=== PATIENT | female | born 1950 | race American Indian/Alaskan Native ===

== ENCOUNTER 2017-03-14 14:50 | Emergency (ER) | payer MEDICARE ==
--- NOTE | 2017-03-14 17:07 | Emergency Department Report ---
ED General Adult HPI - General Chief complaint: Hypoglycemia Stated complaint: TOOK WRONG MEDS Time Seen by Provider: 03/14/17 16:12 Source: patient, EMS Mode of arrival: Ambulatory Limitations: No Limitations - History of Present Illness Initial comments: Patient is 67 years old female history of diabetes and hypertension. Patient brought here for evaluation of hypoglycemia secondary to taking the wrong medication. Patient stated that around 1:00 this afternoon instead of taking her 30 units of Levemir she took 30 units of NovoLog. Patient blood sugar dropped, but she was conscious, patient was given a meal. Her blood sugar now is 224. - Related Data Allergies Allergy/AdvReac Type Severity Reaction Status Date / Time lisinopril Allergy Angioedema Verified 03/14/17 16:02 ED Review of Systems ROS: Stated complaint: TOOK WRONG MEDS Other details as noted in HPI Comment: All other systems reviewed and negative Constitutional: denies: chills, fever Respiratory: denies: cough, shortness of breath, SOB with exertion Cardiovascular: denies: chest pain, palpitations, edema Gastrointestinal: denies: abdominal pain, nausea, vomiting, diarrhea, constipation ED Past Medical Hx - Past Medical History Previous Medical History?: Yes Hx Hypertension: Yes Hx Diabetes: Yes Additional medical history: High Cholestrol - Social History Smoking Status: Never Smoker Substance Use Type: None ED Physical Exam - General Limitations: No Limitations General appearance: alert, in no apparent distress - Head Head exam: Present: atraumatic, normocephalic, normal inspection - Eye Eye exam: Present: normal appearance, PERRL - ENT ENT exam: Present: normal exam, normal orophraynx, mucous membranes moist - Neck Neck exam: Present: normal inspection, full ROM. Absent: tenderness, meningismus - Respiratory Respiratory exam: Present: normal lung sounds bilaterally. Absent: respiratory distress, wheezes, rales, rhonchi, chest wall tenderness, accessory muscle use, decreased breath sounds, prolonged expiratory - Cardiovascular Cardiovascular Exam: Present: regular rate, normal rhythm, normal heart sounds - GI/Abdominal GI/Abdominal exam: Present: soft, normal bowel sounds. Absent: distended, tenderness, guarding, rebound, rigid, organomegaly, mass, bruit, pulsatile mass - Extremities Exam Extremities exam: Present: normal inspection, full ROM, normal capillary refill. Absent: tenderness, pedal edema - Back Exam Back exam: Present: normal inspection, full ROM. Absent: tenderness, CVA tenderness (R), CVA tenderness (L), muscle spasm, paraspinal tenderness - Neurological Exam Neurological exam: Present: alert, oriented X3, CN II-XII intact, normal gait - Psychiatric Psychiatric exam: Absent: suicidal ideation - Skin Skin exam: Present: warm, intact, normal color ED Course Vital Signs 03/14/17 03/14/17 03/14/17 15:49 15:55 16:15 Temperature 98.5 F Pulse Rate 87 83 Respiratory 24 Rate Blood Pressure 158/66 154/74 O2 Sat by Pulse 100 100 100 Oximetry 03/14/17 18:48 Temperature Pulse Rate Respiratory 18 Rate Blood Pressure O2 Sat by Pulse Oximetry - Reevaluation(s) Reevaluation #1: 03/14/17 19:34 Patient is alert, oriented 3. I will keep observing her and recheck her blood sugar again before I discharge her home. ED Medical Decision Making - Lab Data Result diagrams: 03/14/17 16:26 03/14/17 16:26 Critical care attestation.: If time is entered above; I have spent that time in minutes in the direct care of this critically ill patient, excluding procedure time. ED Disposition Clinical Impression: Hypoglycemia due to insulin Disposition: DC-01 TO HOME OR SELFCARE Is pt being admited?: No Condition: Stable Instructions: Diabetic Hypoglycemia (ED) Referrals: PRIMARY CARE, [Primary Care Provider] - 3-5 Days
[2017-03-14 17:08] LABS: BUN/Creatinine Ratio 32; Blood Urea Nitrogen 16 mg/dL (7-17); Calcium 9.7 mg/dL (8.4-10.2); Hemolysis Index 7
[2017-03-14 17:11] LABS: Basophils # (Auto) 0.1 K/mm3 (0.0-0.1); Basophils % (Auto) 0.8 % (0.0-1.8); Eosinophils # (Auto) 0.1 K/mm3 (0.0-0.4); Eosinophils % (Auto) 1.9 % (0.0-4.3); Hematocrit 41.1 % (30.3-42.9); Hemoglobin 13.8 gm/dl (10.1-14.3); Lymphocytes # (Auto) 2.5 K/mm3 (1.2-5.4); Lymphocytes % (Auto) 36.5 % (13.4-35.0); Mean Corpuscular HGB Conc 34 % (30-34); Mean Corpuscular Hemoglobin 29 pg (28-32); Mean Corpuscular Volume 88 fl (79-97); Monocytes # (Auto) 0.7 K/mm3 (0.0-0.8); Monocytes % (Auto) 9.8 % (0.0-7.3); Red Blood Count 4.69 M/mm3 (3.65-5.03); Red Cell Distribution Width 13.8 % (13.2-15.2)
[2017-03-14 17:27] LABS: Platelet Count 196 K/mm3 (140-440)
[2017-03-14 18:50] VITALS: BP 154/74
== END 2017-03-14 21:00 | disposition home or self-care (01) ==
LOC: ED 14:50
DX: E16.0 Drug-induced hypoglycemia without coma (principal); I10 Essential (primary) hypertension
CPT/HCPCS: 36415; 80048; 82962; 85025